=== PATIENT | female | born 1975 | race Hispanic/Latino ===

== ENCOUNTER 2017-05-05 12:20 | Outpatient (CLI) | payer MEDICARE, MEDICAID | END 2017-05-05 12:21 | disposition home or self-care (01) | LOC: BICMAMMO 12:20 | PROVIDERS: ATTEND Family Medicine | DX: R92.8 Other abnormal and inconclusive findings on diagnostic imaging of breast (principal) | CPT/HCPCS: 76642; 77066; G0279 ==

== ENCOUNTER 2019-05-10 00:25 | Observation (INO) | payer MEDICARE, MEDICAID ==
[2019-05-10] MEDS ORDERED: hydrALAZINE 20 MG/ML VIAL SLOW IVP SCH (03:15)
[2019-05-10 03:16] VITALS: BMI 29.5
[2019-05-10] MEDS ORDERED: cloNIDine 0.3mg/24 Hour PATCH TD PRN (04:46)
[2019-05-10] MEDS ORDERED: Acetaminophen 325 MG TAB PO PRN (04:46)
--- NOTE | 2019-05-10 05:06 | HP ---
PRIMARY CARE PHYSICIAN: Dr. Giordano. CHIEF COMPLAINT: Left-sided weakness. HISTORY OF PRESENT ILLNESS: Ms. Topete is a very pleasant 43-year-old female who has a history of previous stroke with right-sided weakness. She says that her stroke in the past was due to high blood pressure. She says that she has been doing essentially okay since her stroke before, but then yesterday at around 5:30 p.m., she says that she started getting extremely dizzy. She was in her kitchen at the time. She said she went outside to go get something and then was on her way back into the house when she noticed that her left leg was not working and she fell. Her helped her up and helped her back into the house. She says that she tried to take a shower and change but her leg was still weak and as a result, she asked her to bring her to the hospital. This was around 7:00 p.m. She says that by the time she got to the ER, she started to feel a little bit better and now her symptoms have completely resolved. She denied any chest pain or shortness of breath. No nausea and no vomiting during this time and she did not notice any weakness in her left arm. She says she has been compliant with her medications and says her blood pressure normally runs fairly good since she had been placed on the Catapres patch in addition to her other medicines. REVIEW OF SYSTEMS: All systems were reviewed and are negative, except for that mentioned in the history of present illness. 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 PAST SURGICAL HISTORY: She has had a cholecystectomy and a . ALLERGIES: TO CODEINE, WHICH CAUSES NAUSEA. PENICILLIN CAUSES ANAPHYLAXIS. SOCIAL HISTORY: She is , has 2 children. She smokes about a pack a day for the last 13 years. She denies any alcohol or drug use. FAMILY HISTORY: Significant for father, who had heart disease and coronary artery disease. MEDICATIONS: Include; 1. Aspirin 81 mg daily. 2. Catapres patch-TTS-3. 3. Hydralazine 100 mg t.i.d. 4. Losartan 100 mg daily. PHYSICAL EXAMINATION: GENERAL: She is alert and oriented. She appears to be in no acute distress. She is well developed and well nourished. VITAL SIGNS: Her blood pressure was as high as 227/119, but currently it is 158/80; heart rate 76; respiratory rate of 16; and she is afebrile. HEENT: Her pupils, the right pupil is a bit dilated and minimally reactive. The left is reactive. She does have some opacification of her lens on the right. Throat, there is no erythema and no exudate. NECK: No adenopathy. No bruits. LUNGS: Clear to auscultation. There is no wheezing, no rales, no rhonchi. CARDIOVASCULAR: She has a normal S1, S2. I did not appreciate an S3 or S4. No murmurs or clicks. No rubs. ABDOMEN: Obese. It is soft, nontender, and nondistended. Positive for bowel sounds. No rebound. No guarding. No organomegaly. EXTREMITIES: There is no edema. No calf tenderness. No joint effusions. NEUROLOGIC: She has some significant weakness in the right upper extremity and some flexion deformity of the right hand. She is unable to extend her fingers. The left upper and lower extremity, she has normal strength. She does have a right facial droop, and her reflexes are slightly hyperreactive. SKIN AND INTEGUMENT: There are no skin changes. No rash. LABORATORY DATA: The white blood cell count is 11, hemoglobin 11.3, hematocrit is 35.5, and platelet count is 255. Sodium 142, potassium 4.0, chloride is 111, CO2 is 21, BUN of 20, creatinine 1.8, and glucose is 127. She had a CT scan of the brain showing chronic ischemic changes but no acute finding. There was some enlargement of the frontal horn and the anterior body of the left lateral ventricle, possibly indicating a previous stroke. She had a CT angiogram of the [place], which was negative for aneurysm and both the internal and external carotid arteries bilaterally were patent. ASSESSMENT: This is a pleasant 43-year-old female who presents with a transient weakness in the left lower extremity as well as dizziness. I suspect this was likely a transient ischemic attack. Her symptoms have almost completely resolved. She also had hypertensive urgency with extremely elevated blood pressure, which appears to be resolving as well. She is a current smoker and the need to quit and how this is contributing to her current present illness was discussed with the patient. The plan will be to place the patient in observation, get an MRI of the brain, get an echocardiogram. Monitor her blood pressure to see if any medication adjustments are needed. She has already been counseled on the need to stop smoking and may need to either add Plavix to her low-dose aspirin or change her to Aggrenox depending on the results of her MRI. We will also check a lipid panel to see whether or not she needs the addition of a statin. Job ID: [id number]
[2019-05-10] MEDS: Losartan 25 MG TAB PO SCH (08:52)
[2019-05-10] MEDS: Famotidine 20 MG TAB PO SCH ×2 (08:52→21:15)
[2019-05-10] MEDS: hydrALAZINE 25 MG TAB PO SCH ×3 (08:52→21:15)
[2019-05-10] MEDS: Potassium Chloride 10 MEQ TAB PO SCH (08:53)
[2019-05-10] MEDS: Enoxaparin Sodium 40 MG/0.4 ML SYRINGE SC SCH (08:56)
[2019-05-10] MEDS ORDERED: Aspirin 325 mg Enteric Coated Tablet PO SCH (09:00)
[2019-05-10] MEDS: Multivit, Therapeutic 1 TAB PO SCH (09:04)
--- NOTE | 2019-05-10 12:18 | MRI ---
MRI BRAIN WITHOUT CONTRAST: Date: 05/10/2019 HISTORY: TIA, right-sided weakness. FINDINGS: Correlation is made with the previous day's CT brain and CTA brain of previous day. No restricted diffusion is seen. There are multiple foci of T2 prolongation in the periventricular wh ite matter consistent with chronic small vessel ischemic disease. There is hemosiderin in the left ex ternal capsule consistent with old hemorrhagic infarction. There is asymmetric ex vacuo dilatation o f the left lateral ventricle. No evidence of acute infarct, acute hemorrhage, midline shift, or abnor mal extra-axial fluid collections are seen. There is mucosal disease in the paranasal sinuses. IMPRESSION: No evidence of acute intracranial process. POS: [facility]
--- NOTE | 2019-05-10 18:50 | CON ---
DATE OF CONSULTATION: 05/10/2019 CONSULTING PHYSICIAN: Hospitalist service. IMPRESSION: 1. Questionable transient ischemic attack versus hypertensive urgency. 2. Prior intracerebral hemorrhage on the left secondary to hypertension. 3. Hypertension. 4. Tobacco use. 5. 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 PLAN: 1. Change from aspirin to Aggrenox. 2. Discontinue smoking. 3. Review echocardiogram tomorrow. HISTORY OF PRESENT ILLNESS: Ms. Topete is a 43-year-old female with a past history of a small intracerebral hemorrhage and blindness of the left eye secondary to vascular disease. She presented with complaints of increased left leg weakness and feeling of dizziness, it was coming and going and what she describes as wave. The symptoms lasted at least 4 hours, not longer. Initial CT was unremarkable. MRI of the brain showed evidence of chronic injury with old hemosiderin in the internal capsule on the left. There is some ventricular dilatation on the left as well. CT angiogram did not show any carotid stenosis, but there was some narrowing of the basilar artery by about 40%. She has not had any further symptoms since admission. Her initial blood pressure was 227/119, but has improved significantly to 119/60. PAST MEDICAL HISTORY: Hypertension. ALLERGIES: CODEINE AND PENICILLIN. MEDICATIONS: 1. Lipitor. 2. Ecotrin. 3. Clonidine. 4. Femodipine. 5. Hydralazine. 6. Losartan. 7. Potassium. SOCIAL HISTORY: Positive for tobacco. No alcohol abuse. REVIEW OF SYSTEMS: Ten-system review of systems is otherwise negative. PHYSICAL EXAMINATION: GENERAL: She is a somewhat overweight middle-aged woman, in no acute distress. VITAL SIGNS: Blood pressure 119/60, pulse 60, and respirations 16. She has been afebrile. HEENT: Pupils equal. Conjunctivae clear. Oropharynx clear. The left eye pupil does not react to light. NECK: Supple. EXTREMITIES: No cyanosis or edema. NEUROLOGIC: She is alert and cooperative. Her speech is fluent and clear. Cranial nerves are intact. Motor exam shows equal strength bilaterally. There is no sensory deficit. There are no abnormal movements. Gait was not tested. LABORATORY STUDIES: Cholesterol ratio of 3.0. IMAGING STUDIES: Reviewed. SUMMARY: This is a 43-year-old woman with previous vascular events, who presents with several hours of suspicious symptoms were a basilar TIA. Her MRI did not confirm any ischemic injury. Given the overall picture, I would advance her antiplatelet therapy to Aggrenox. If she remains stable, she can be discharged home tomorrow. Job ID: [id number]
[2019-05-10] MEDS ORDERED: Atorvastatin Calcium 40 MG TAB PO SCH (21:00)
[2019-05-10] MEDS: Aggrenox 200-25mg CAP PO SCH (21:14)
--- NOTE | 2019-05-10 21:45 | PDOC.HOSPP ---
- Subjective Encounter Date: 05/10/19 Encounter Time: 16:00 Subjective: The patient states she feels better. She is no longer dizzy. She walked around with physical therapy and felt no dizziness. ECHO was pending at the time of evaluation. She reports old stroke on the right side of body last year. She takes aspirin but not statin - Objective Vital Signs & Weight: Vital Signs (12 hours) Temp Pulse Pulse Pulse Pulse Pulse Resp 05/10/19 21:15 57 L 05/10/19 19:09 97.6 F 57 L 16 05/10/19 15:39 60 05/10/19 15:16 65 18 05/10/19 14:25 62 64 05/10/19 11:08 98.0 F 64 16 05/10/19 10:25 72 62 72 64 BP BP BP BP BP BP Pulse Ox 05/10/19 21:15 142/68 H 05/10/19 19:09 100 05/10/19 15:39 119/60 05/10/19 15:16 91/65 100 05/10/19 14:25 135/67 132/70 05/10/19 11:08 137/76 98 05/10/19 10:25 151/86 H 144/81 H 160/91 H 137/76 Weight Weight 156 lb 9.6 oz I&O: 05/09/19 05/10/19 05/11/19 06:59 06:59 06:59 Intake Total 60 1800 Balance 60 1800 Hospitalist ROS - Review of Systems Constitutional: denies: fever, chills Respiratory: denies: cough, dry - Medication Medications: Active Medications Generic Name Dose Route Start Last Admin Trade Name Freq PRN Reason Stop Dose Admin Acetaminophen 650 mg 05/10/19 04:46 05/10/19 21:14 Tylenol PO 650 mg Q4H PRN Administration Headache/Fever/Mild Pain (1-3) Atorvastatin Calcium 40 mg 05/10/19 21:00 05/10/19 21:14 Lipitor PO 40 mg HS MOISE Administration Dipyridamole/Aspirin 1 cap 05/10/19 21:00 05/10/19 21:14 Aggrenox PO 1 cap BID MOISE Administration Enoxaparin Sodium 40 mg 05/10/19 09:00 05/10/19 08:56 Lovenox SC 40 mg 0900 MOISE Administration Famotidine 20 mg 03/18/20 09:00 05/10/19 21:15 Pepcid PO 20 mg BID MOISE Administration Hydralazine HCl 100 mg 05/10/19 09:00 05/10/19 21:15 Apresoline PO 100 mg TID MOISE Administration Losartan Potassium 100 mg 05/10/19 09:00 05/10/19 08:52 Cozaar PO 100 mg DAILY MOISE Administration Multivitamins 1 tab 05/10/19 09:00 05/10/19 09:04 Theragran PO 1 tab DAILY OMISE Administration Potassium Chloride 10 meq 05/10/19 09:00 05/10/19 08:53 Klor-Con 10 PO 10 meq DAILY MOISE Administration Sodium Chloride 10 ml 05/10/19 04:46 05/10/19 21:16 Flush - Normal Saline IVF 10 ml PRN PRN Administration Saline Flush - Exam General Appearance: NAD, awake alert Eye: PERRL, anicteric sclera ENT: normocephalic atraumatic, no oropharyngeal lesions Neck: supple, no JVD Heart: RRR, no murmur, no gallops, no rubs Respiratory: CTAB, no wheezes, no rales, no ronchi Gastrointestinal: soft, non-tender, non-distended, normal bowel sounds Extremities: no cyanosis, no clubbing, no edema Skin: normal turgor, no lesions, no rashes Neurological: cranial nerve grossly intact, normal sensation to touch, no new deficit Neurological - other findings: right side 4/5 upper and lower which is baseline. Left side 5/5 upper+ lowe Musculoskeletal: normal tone, normal strength, no muscle wasting Hosp A/P - Plan MRI Brain: no acute process ECHO: EF 60-65%, mild LVh CTA: narrowings of the distal portions of each vertebral artery, particularly the left CT head: severe atherosclerotic calcifications of the intracavernous carotic arteries as well as basilar and right greater than left vertebral arteries. This is a 43 year old female who presented with dizziness and left leg weakness , admitted for TIA workup Hypertensive urgency - blood pressure improved with increasing hydralazine to 100 mg tid - continue losartan 100 mg daily - ECHO shows no significant abnormalities - will monitor overnight and likely d/c in am Transient Left leg weakness - possibly TIA - aspirin switched to aggrenox - continue aspirin - continue statin - LDL only 47 Leukocytosois - WBC 11, likely reactive, check UA and chest X ray
[2019-05-11 05:04] LABS: #Basophils 0.1 thou/uL (0.0-0.2); #Eosinphils 0.4 thou/uL (0.0-0.7); #Lymphocytes 3.1 thou/uL (1.20-3.40); #Monocytes 0.7 thou/uL (0.11-0.59); #Neutrophils 5.7 thou/uL (1.40-6.50); %Basophils 0.6 % (0.0-1.0); %Eosinophils 4.2 % (0.0-10.0); %Lymphocytes 31.2 % (21.0-51.0); %Monocytes 6.9 % (0.0-10.0); %Neutrophils 57.2 % (42.0-75.0); Hemoglobin 11.3 g/dL (12.0-16.0); Mean Corpuscular HGB CONC 33.2 g/dL (32.0-36.0); Mean Corpuscular Hemoglobin 32.9 pg (27.0-31.0); Mean Corpuscular Volume 99.1 fL (78.0-98.0); Mean Platelet Volume 9.1 fL (7.4-10.4); Platelet Count 242 thou/uL (130-400); RBC Distribution Width 12.5 % (11.5-14.5); Red Blood Cell (RBC) Count 3.42 mill/uL (4.20-5.40)
[2019-05-11 05:27] LABS: Anion Gap 11 mmol/L (10-20); BUN (Urea Nitrogen) 24 mg/dL (7.0-18.7); Calc. Creatinine Clearance 55 mL/min (70-130); Calcium 8.4 mg/dL (7.8-10.44); Carbon Dioxide 18 mmol/L (22-29); Chloride 114 mmol/L (98-107); Estimated GFR-MDRD 38; Glucose 88 mg/dL (70-105); Sodium 139 mmol/L (136-145)
[2019-05-11 07:16] VITALS: BP 133/81; TEMP 98.1
--- NOTE | 2019-05-11 07:44 | RAD ---
EXAM: Single view of the chest HISTORY: Leukocytosis COMPARISON: 04/17/2017 FINDINGS: Single view of the chest shows a normal sized cardiomediastinal silhouette. There is no adonis dence of consolidation, mass, or pleural effusion. Degenerative changes are seen in the spine. IMPRESSION: No evidence of acute cardiopulmonary disease
[2019-05-11] MEDS: Losartan 25 MG TAB PO SCH (08:59)
[2019-05-11] MEDS: Enoxaparin Sodium 40 MG/0.4 ML SYRINGE SC SCH (08:59)
[2019-05-11] MEDS: hydrALAZINE 25 MG TAB PO SCH (09:00)
[2019-05-11] MEDS: Potassium Chloride 10 MEQ TAB PO SCH (09:00)
[2019-05-11] MEDS: Famotidine 20 MG TAB PO SCH (09:00)
[2019-05-11] MEDS: Multivit, Therapeutic 1 TAB PO SCH (09:00)
[2019-05-11] MEDS: Aggrenox 200-25mg CAP PO SCH (09:00)
[2019-05-11 09:46] LABS: Bilirubin Negative (Negative); Blood, Urine Negative (Negative); Clarity Turbid (Clear); Glucose, Urine (Dipstick) Normal (Negative); Leukocyte 250 Leu/uL (Negative); Nitrite 2+ (Negative); Protein, Urine (Dipstick) Negative (Neg-Trace); RBC/HPF 0-3 HPF (0-3); Urobilinogen Normal mg/dL (Less than 2); WBC/HPF 21-50 HPF (0-3)
[2019-05-11 09:51] LABS: Bacteria/HPF 4+ HPF (None Seen)
--- NOTE | 2019-05-11 13:06 | DIS ---
DATE OF ADMISSION: 05/10/2019 DATE OF DISCHARGE: 05/11/2019 DISCHARGE DIAGNOSES: Hypertensive urgency, transient ischemic attack, anemia, chronic kidney disease. CONSULTATIONS: Neurology with Dr. Neo Ash. PROCEDURES: None. BRIEF HISTORY OF PRESENT ILLNESS: This is a 43-year-old female with a past medical history of hypertension, cataracts, retinal clot, who presented to the emergency room with left-sided weakness. The patient stated that she was walking around in the kitchen and she started feeling extremely dizzy, and her left arm and left leg went weak. By the time she came to the hospital, her symptoms had completely resolved. CT scan of her brain showed severe atherosclerotic calcifications of the intracavernous carotid arteries as well as basilar and right greater than left vertebral arteries. CT scan of her head showed no acute abnormality. CTA of her head showed a 50% stenosis in the right V4 segment and severe narrowing in the distal left V4 segment. Blood pressure upon evaluation to the emergency room was greater than 200 systolic. The patient was admitted for stroke workup. HOSPITAL COURSE: Hypertensive urgency/TIA: The patient's outpatient blood pressure medication was increased from hydralazine 50 mg t.i.d. to 100 mg t.i.d. She was continued on her losartan 100 mg daily. Her echo showed no significant abnormalities. She was seen by Neurology for the transient left-sided weakness and was advised to switch from aspirin to Aggrenox. She was also started on a cholesterol pill, atorvastatin 40 mg at bedtime. Her LDL was 47. The patient's blood pressure improved to the 130s with this. She denied any further symptoms of dizziness or vertigo. Her left-sided weakness had resolved. She did have an MRI of her brain, which showed no findings of a stroke. She will be discharged and was advised to follow up with her PCP in a week for re-evaluation of her blood pressure. Vertebral artery stenosis: The patient was noted to have narrowings of the distal portions of each vertebral artery with 50% stenosis of the distal right and more severe focal narrowing in the distal left. Currently, she is asymptomatic. Therefore, this can be further monitored as an outpatient. Anemia: The patient has hemoglobin of 11.3. This seems to be intermittently chronic for her. This can be monitored as an outpatient with her PCP. CKD: The patient's creatinine is 1.49, which is her baseline. Positive UA: The patient did have turbid urine. However, she denied frequency, urgency, or dysuria. Therefore, this is not treated. DISCHARGE PHYSICAL EXAMINATION: VITAL SIGNS: Temperature 98.1, heart rate 60, respiratory rate 14, O2 saturation 98% on room air, blood pressure 133/81. EYES: bilateral cataracts. Strabismus in her eyes. Right pupil not reactive to light due to clot in the retina. Blind in right eye THROAT: no pharyngeal erythema GENERAL: The patient is alert, awake, and oriented x3. CARDIOVASCULAR SYSTEM: Regular rate and rhythm with no murmurs, rubs, or gallops. LUNGS: Clear to auscultation bilaterally. ABDOMEN: Positive bowel sounds. Soft, nontender, nondistended. EXTREMITIES: No edema. NEUROLOGIC: The patient's cranial nerves 2 through 12 are intact, right pupil not reactive. The patient reports she is blind in her right eye. She has 5/5 strength in her upper and lower extremities. Intact sensation in all 4 extremities. She has normal [id number] testing. PERTINENT LABORATORY DATA: CBC on 05/10: Hemoglobin 11.3, hematocrit 33.9, MCV 99. BMP on 05/10: Creatinine 1.49. Lipid panel: Cholesterol 136, LDL 77, HDL 46, triglycerides 65. UA on 05/10: Turbid urine, 2+ nitrite, 250 leukocyte esterase, 21 to 50 white blood cells. PERTINENT IMAGING STUDIES: CT brain on 05/08: No acute intracranial abnormality. Severe atherosclerotic calcifications of the intracavernous carotid arteries as well as the basilar and right greater than left vertebral arteries. CTA: No evidence of vascular occlusion. There is greater than 50% stenosis of the distal right vertebral artery. There is more severe focal narrowing in the distal left vertebral artery. MRI brain on 05/09: No acute intracranial process. Chest x-ray on 05/09: Shows no acute intracranial process. Echo on 05/09: Shows EF 60% to 65%. Mild concentric LVH. Left atrium is mildly dilated. No valvular abnormalities. DISCHARGE CONDITION: Stable. ACTIVITY: As tolerated. DIET: Heart healthy diet. DISCHARGE INSTRUCTIONS: The patient is to start taking Aggrenox and atorvastatin twice daily. Her hydralazine was increased to 100 mg p.o. t.i.d. She should follow up with her PCP in a week and consider further evaluation of vertebral artery stenosis. Job ID: [id number] [facility]
== END 2019-05-11 14:00 | disposition home or self-care (01) ==
LOC: ERS 00:25 → 2SE 01:11
PROVIDERS: ADMIT Internal Medicine; ATTEND Internal Medicine
DX: G45.9 Transient cerebral ischemic attack, unspecified (principal); I16.0 Hypertensive urgency; I65.03 Occlusion and stenosis of bilateral vertebral arteries; D64.9 Anemia, unspecified; R82.998 Other abnormal findings in urine; D72.829 Elevated white blood cell count, unspecified; I12.9 Hypertensive chronic kidney disease with stage 1 through stage 4 chronic kidney disease, or unspecified chronic kidney disease; N18.9 Chronic kidney disease, unspecified; H47.012 Ischemic optic neuropathy, left eye; F17.210 Nicotine dependence, cigarettes, uncomplicated; Z79.899 Other long term (current) drug therapy; Z86.73 Personal history of transient ischemic attack (TIA), and cerebral infarction without residual deficits; Z88.0 Allergy status to penicillin; Z88.5 Allergy status to narcotic agent; Z90.49 Acquired absence of other specified parts of digestive tract
CPT/HCPCS: 36415; 70551; 71045; 80048; 80061; 81001; 85025; 93005; 93010; 93306; 96372; 96374; 99285; G0378; J0360; J1650

== ENCOUNTER 2020-06-21 12:46 | Outpatient (CLI) | payer MEDICARE, MEDICAID | END 2020-06-21 12:47 | disposition home or self-care (01) | LOC: BICMAMMO 12:46 | PROVIDERS: ATTEND Family Medicine | DX: Z12.31 Encounter for screening mammogram for malignant neoplasm of breast (principal) | CPT/HCPCS: 77063; 77067 ==

== ENCOUNTER 2020-06-27 10:54 | Outpatient (CLI) | payer MEDICARE, MEDICAID ==
[2020-06-27 12:42] LABS: BHCG - Serum Negative (NEGATIVE); Pregs Control Background? CLEAR/WHITE (CLR/WHITE); Pregs Control Bar Appear? YES (CONTROL BAR)
== END 2020-06-27 10:55 | disposition home or self-care (01) ==
LOC: LABBT 10:54
PROVIDERS: ATTEND Thoracic Surgery (Cardiothoracic Vascular Surgery)
DX: Z01.818 Encounter for other preprocedural examination (principal); I25.10 Atherosclerotic heart disease of native coronary artery without angina pectoris; Z20.822 Contact with and (suspected) exposure to COVID-19
CPT/HCPCS: 71046; 80048; 84703; 85027; 86850; 86900; 86901; 86920; U0003; U0005; 87635

== ENCOUNTER 2020-07-01 06:16 | Inpatient (IN) | payer MEDICARE, MEDICAID ==
[2020-06-27 12:36] LABS: Hemoglobin 11.5 g/dL (12.0-15.5); Mean Corpuscular HGB CONC 32.7 g/dL (32.0-36.0); Mean Corpuscular Hemoglobin 32.8 pg (27.0-33.0); Mean Corpuscular Volume 100.3 fl (81.6-98.3); Mean Platelet Volume 11.7 fl (7.4-10.4); Platelet Count 261 10x3/uL (150-450); Red Blood Cell (RBC) Count 3.51 10x6/uL (3.90-5.03); White Blood Cell (WBC) Count 10.3 10x3/uL (3.5-10.5)
[2020-06-27 12:50] LABS: Anion Gap 17 mmol/L (10-20); BUN (Urea Nitrogen) 22 mg/dL (7.0-18.7); Calc. Creatinine Clearance 0 mL/min (70-130); Calcium 9.2 mg/dL (7.8-10.44); Carbon Dioxide 19 mmol/L (22-29); Chloride 109 mmol/L (98-107); Glucose 108 mg/dL (70-105); Potassium 4.2 mmol/L (3.5-5.1); Sodium 141 mmol/L (136-145)
[2020-06-27 20:46] LABS: SARS-CoV-2 PCR by NAA Not Detected (NotDetected)
[2020-07-01] MEDS ORDERED: Vancomycin 1 GM/200 ML BAG ONE (06:28)
[2020-07-01] MEDS ORDERED: Clindamycin/D5W 900 mg/50 ml Premix Bag ONE (06:28)
[2020-07-01] MEDS ORDERED: Midazolam HCl 2 mg/2 ml Vial ONE (06:32)
[2020-07-01] MEDS ORDERED: Fentanyl 100 MCG/2 ML VIAL ONE (06:32)
[2020-07-01] MEDS ORDERED: Midazolam HCl 5 mg/5 ml Vial ONE (06:32)
[2020-07-01] MEDS ORDERED: Dexmedetomidine 200 MCG/2 ML VIAL ONE (06:33)
[2020-07-01] MEDS ORDERED: Vecuronium 10 MG VIAL ONE ×3 (06:33→07:27)
[2020-07-01] MEDS ORDERED: Albumin 5% 500 ML ONE (06:34)
[2020-07-01] MEDS ORDERED: Dexamethasone 4 mg/ml Vial ONE (06:35)
[2020-07-01] MEDS ORDERED: Bupivacaine PF 0.5% 30 ML VIAL ONE (06:35)
[2020-07-01] MEDS ORDERED: EPINEPHrine 1 MG/ML AMP ONE (06:35)
[2020-07-01] MEDS ORDERED: Aminocaproic Acid 5 GM/20 ML VIAL ONE (07:27)
[2020-07-01] MEDS ORDERED: Ondansetron PF 4 MG/2 ML Vial ONE (07:27)
[2020-07-01] MEDS ORDERED: Calcium Chloride 1 GM/10 ML Abboject SYRINGE ONE (07:27)
[2020-07-01] MEDS ORDERED: Lidocaine 2% PF 100 mg/5 ml Syringe ONE (07:27)
[2020-07-01] MEDS ORDERED: Papaverine 60 MG/2 ML VIAL ONE (07:27)
[2020-07-01] MEDS ORDERED: Potassium Chloride 60 MEQ/30 ML VIAL ONE (07:27)
[2020-07-01] MEDS ORDERED: ePHEDrine Sulfate 50 MG/10 ML VIAL ONE (07:27)
[2020-07-01] MEDS ORDERED: Glycopyrrolate 0.2 MG/ML 5 ML SYRINGE ONE (07:27)
[2020-07-01] MEDS ORDERED: Heparin 5,000 UNITS/ML VIAL ONE (07:27)
[2020-07-01] MEDS ORDERED: Magnesium Sulfate 1 GM/2 ML VIAL ONE (07:27)
[2020-07-01] MEDS ORDERED: Sodium Bicarb 50 MEQ/50 ML Abboject 8.4% SYRINGE ONE (07:27)
[2020-07-01] MEDS ORDERED: Cardioplegic Soln 1,000 ML BAG ONE (07:27)
[2020-07-01] MEDS ORDERED: Ketorolac Tromethamine 30 MG/ML VIAL ONE (07:27)
[2020-07-01] MEDS ORDERED: Heparin 30,000 units/30 ml VIAL ONE (07:27)
[2020-07-01] MEDS ORDERED: Lidocaine 1% PF 5 ML VIAL ONE ×2 (07:27)
[2020-07-01] MEDS ORDERED: Mannitol 12.5 GM/50 ML ONE (07:27)
[2020-07-01] MEDS ORDERED: Protamine Sulfate 250 MG/25 ML VIAL ONE (07:27)
[2020-07-01] MEDS ORDERED: Thrombin 5000 UNITS/5 ML VIAL ONE (07:27)
[2020-07-01] MEDS ORDERED: Dexamethasone 20 MG/5 ML VIAL ONE (07:27)
[2020-07-01] MEDS ORDERED: PHENYLEPHRINE-NS 100 MCG/ML 10 ML SYRINGE ONE ×2 (07:27→08:16)
[2020-07-01] MEDS ORDERED: Sodium Chloride 0.9% 10 ML ONE (07:39)
[2020-07-01] MEDS ORDERED: Ondansetron PF 4 MG/2 ML Vial IVP PRN (11:58)
[2020-07-01] MEDS ORDERED: Phenylephrine 40 MG in Sodium Chloride 0.9% 250 ML 250 ML IVPB PRN (11:58)
[2020-07-01] MEDS ORDERED: traMADol HCl 50 MG TAB PO PRN (11:58)
[2020-07-01] MEDS ORDERED: Nitroglycerin 50 MG/250 ML BOT 250 ML IVPB PRN (11:58)
[2020-07-01] MEDS ORDERED: Mag-Al 1200 mg/1200 mg/30 ML UDCUP PO PRN (11:58)
[2020-07-01] MEDS ORDERED: hydrALAZINE 20 MG/ML VIAL SLOW IVP PRN (11:58)
[2020-07-01] MEDS ORDERED: Fentanyl 100 MCG/2 ML VIAL SLOW IVP PRN ×2 (11:58)
[2020-07-01] MEDS ORDERED: Bisacodyl 5 MG TAB PO PRN (11:58)
[2020-07-01] MEDS ORDERED: HYDROcodone/Acetaminophen 5/325 mg Tablet PO PRN (11:58)
[2020-07-01] MEDS ORDERED: Hetastarch 6% 500 ML 500 ML IVPB PRN (11:58)
[2020-07-01] MEDS ORDERED: Acetaminophen 325 MG TAB PO PRN (11:58)
[2020-07-01] MEDS ORDERED: Promethazine HCl 25 MG/ML VIAL IM PRN (11:58)
[2020-07-01] MEDS ORDERED: Bisacodyl 10 MG SUPP PR PRN (11:58)
[2020-07-01] MEDS ORDERED: Guaifenesin DM 100-10/5 ML UDCUP PO PRN (11:58)
[2020-07-01 12:27] LABS: Mean Corpuscular HGB CONC 31.9 g/dL (32.0-36.0); Mean Corpuscular Hemoglobin 32.6 pg (27.0-31.0); Mean Platelet Volume 8.5 fL (7.4-10.4); Platelet Count 169 thou/uL (130-400); RBC Distribution Width 11.5 % (11.5-14.5); Red Blood Cell (RBC) Count 2.76 mill/uL (4.20-5.40); White Blood Cell (WBC) Count 25.7 thou/uL (4.8-10.8)
[2020-07-01] MEDS ORDERED: Dextrose 5% in Water 1,000 ML IV PRN (12:30)
[2020-07-01] MEDS ORDERED: Lantus 1000 UNITS/10 ML VIAL SC PRN (12:30)
[2020-07-01] MEDS ORDERED: HUMULIN R 100 UNITS in Sodium Chloride 0.9% 100 ML IVPB SCH (12:30)
[2020-07-01] MEDS ORDERED: Dextrose 50% Abboject 50 ML SYRINGE SLOW IVP PRN (12:30)
[2020-07-01 12:37] LABS: INR-International Normal Ratio 1.2; PTT 31.7 sec (22.9-36.1); Prothrombin Time 15.2 sec (12.0-14.7)
[2020-07-01] MEDS: Clindamycin/D5W 900 MG in Premix Bag 1 BAG IVPB SCH ×3 (12:44→23:09)
[2020-07-01 12:45] LABS: Band 20 % (5-11); Eosinophils 1 % (0-10); Lymphocytes 11 % (21-51); MDiff Complete? YES; Monocytes 3 % (0-10); Neutrophil 64 % (42-75); Platelet Morphology Comment Appears Adequate; Polychromasia SLIGHT = 2-3 cells (100X) (0-2/hpf); Reactive Lymphocytes 1 % (0-10)
[2020-07-01] MEDS: D5 1/2 NS w/20 mEq KCL 1,000 ML IV SCH (12:45)
[2020-07-01] MEDS: Insulin Regular 300 UNITS/3 ML VIAL SC PRN (12:45)
[2020-07-01] MEDS: Ketorolac Tromethamine 30 MG/ML VIAL IVP SCH ×3 (12:46→23:05)
[2020-07-01 12:49] LABS: Anion Gap 11 mmol/L (10-20); BUN (Urea Nitrogen) 16 mg/dL (7.0-18.7); Calc. Creatinine Clearance 64 mL/min (70-130); Calcium 7.4 mg/dL (7.8-10.44); Carbon Dioxide 20 mmol/L (22-29); Chloride 113 mmol/L (98-107); Glucose 189 mg/dL (70-105); Potassium 3.9 mmol/L (3.5-5.1); Sodium 140 mmol/L (136-145)
[2020-07-01] MEDS: HYDROcodone/Acetaminophen 5/325 mg Tablet PO PRN ×3 (14:21→23:08)
[2020-07-01] MEDS: Potassium Chloride 20 MEQ/100 ML PREMIX BAG IVPB PRN (16:53)
[2020-07-01] MEDS: Vancomycin 1 GM in Premix Bag 1 BAG IVPB SCH (17:15)
[2020-07-01 18:07] LABS: Hemoglobin 9.9 g/dL (12.0-16.0)
[2020-07-01 18:20] LABS: Potassium 4.1 mmol/L (3.5-5.1)
[2020-07-01] MEDS: Atorvastatin Calcium 40 MG TAB PO SCH (20:45)
[2020-07-01] MEDS ORDERED: Famotidine/PF 20 mg/2ml Vial SLOW IVP SCH (21:00)
[2020-07-02 04:30] LABS: Anion Gap 12 mmol/L (10-20); BUN (Urea Nitrogen) 18 mg/dL (7.0-18.7); Calc. Creatinine Clearance 56 mL/min (70-130); Calcium 7.8 mg/dL (7.8-10.44); Carbon Dioxide 19 mmol/L (22-29); Chloride 108 mmol/L (98-107); Glucose 101 mg/dL (70-105); Potassium 3.8 mmol/L (3.5-5.1); Sodium 135 mmol/L (136-145)
[2020-07-02 04:34] LABS: Band 27 % (5-11); Hemoglobin 8.3 g/dL (12.0-16.0); Lymphocytes 4 % (21-51); MDiff Complete? YES; Mean Corpuscular HGB CONC 32.9 g/dL (32.0-36.0); Mean Corpuscular Hemoglobin 33.7 pg (27.0-31.0); Mean Platelet Volume 9.5 fL (7.4-10.4); Monocytes 8 % (0-10); Neutrophil 61 % (42-75); Platelet Count 150 thou/uL (130-400); RBC Distribution Width 11.6 % (11.5-14.5); Red Blood Cell (RBC) Count 2.46 mill/uL (4.20-5.40); White Blood Cell (WBC) Count 21.5 thou/uL (4.8-10.8)
[2020-07-02] MEDS: HYDROcodone/Acetaminophen 5/325 mg Tablet PO PRN ×3 (05:37→18:32)
[2020-07-02] MEDS: Ketorolac Tromethamine 30 MG/ML VIAL IVP SCH ×4 (05:40→23:53)
[2020-07-02] MEDS: Clindamycin/D5W 900 MG in Premix Bag 1 BAG IVPB SCH (05:41)
[2020-07-02] MEDS: Vancomycin 1 GM in Premix Bag 1 BAG IVPB SCH (05:42)
[2020-07-02] MEDS: Potassium Chloride 20 MEQ/100 ML PREMIX BAG IVPB PRN (05:48)
[2020-07-02 07:10] VITALS: BMI 32.5
[2020-07-02] MEDS: Aspirin 325 MG TAB PO SCH (08:59)
[2020-07-02] MEDS: Insulin Regular 300 UNITS/3 ML VIAL SC PRN (09:41)
[2020-07-02] MEDS: D5 1/2 NS w/20 mEq KCL 1,000 ML IV SCH (11:37)
[2020-07-02] MEDS: Atorvastatin Calcium 40 MG TAB PO SCH (20:47)
[2020-07-02] MEDS ORDERED: Famotidine/PF 20 mg/2ml Vial SLOW IVP SCH (21:00)
[2020-07-03] MEDS ORDERED: diphenhydrAMINE 25 MG CAP PO PRN (01:54)
[2020-07-03] MEDS ORDERED: Zolpidem Tartrate 5 MG TAB PO PRN (01:54)
[2020-07-03] MEDS ORDERED: Fentanyl 100 MCG/2 ML VIAL SLOW IVP PRN (01:54)
[2020-07-03] MEDS ORDERED: Nitroglycerin 0.4 MG TAB (25 Tab Bottle) SL PRN (01:54)
[2020-07-03] MEDS ORDERED: Milk Of Magnesia 30 ML UDCUP PO PRN (01:54)
[2020-07-03] MEDS ORDERED: Ondansetron PF 4 MG/2 ML Vial IVP PRN (01:54)
[2020-07-03] MEDS ORDERED: Mineral Oil ENEMA PR PRN (01:54)
[2020-07-03] MEDS ORDERED: Guaifenesin DM 100-10/5 ML UDCUP PO PRN (01:54)
[2020-07-03] MEDS ORDERED: Bisacodyl 10 MG SUPP PR PRN (01:54)
[2020-07-03] MEDS ORDERED: Mag-Al 1200 mg/1200 mg/30 ML UDCUP PO PRN (01:54)
[2020-07-03] MEDS ORDERED: Furosemide 40 MG TAB PO SCH (02:00)
[2020-07-03] MEDS ORDERED: Potassium Chloride 10 MEQ TAB PO SCH (02:15)
[2020-07-03] MEDS ORDERED: Famotidine 20 MG TAB PO SCH (02:15)
[2020-07-03] MEDS: Ketorolac Tromethamine 30 MG/ML VIAL IVP SCH ×4 (03:52→20:29)
[2020-07-03 04:45] LABS: #Eosinphils 0.1 thou/uL (0.0-0.7); #Lymphocytes 2.6 thou/uL (1.20-3.40); #Neutrophils 14.7 thou/uL (1.40-6.50); %Basophils 0.2 % (0.0-1.0); %Eosinophils 0.5 % (0.0-10.0); %Lymphocytes 14.2 % (21.0-51.0); %Monocytes 5.4 % (0.0-10.0); %Neutrophils 79.8 % (42.0-75.0); Hemoglobin 8.2 g/dL (12.0-16.0); Mean Corpuscular HGB CONC 31.9 g/dL (32.0-36.0); Mean Platelet Volume 9.1 fL (7.4-10.4); Platelet Count 144 thou/uL (130-400); RBC Distribution Width 11.9 % (11.5-14.5); Red Blood Cell (RBC) Count 2.47 mill/uL (4.20-5.40); White Blood Cell (WBC) Count 18.4 thou/uL (4.8-10.8)
[2020-07-03 05:11] LABS: Anion Gap 11 mmol/L (10-20); BUN (Urea Nitrogen) 20 mg/dL (7.0-18.7); Calc. Creatinine Clearance 53 mL/min (70-130); Calcium 8.1 mg/dL (7.8-10.44); Carbon Dioxide 21 mmol/L (22-29); Chloride 110 mmol/L (98-107); Glucose 95 mg/dL (70-105); Sodium 137 mmol/L (136-145)
[2020-07-03] MEDS: traMADol HCl 50 MG TAB PO PRN ×2 (05:20→16:20)
[2020-07-03] MEDS: Furosemide 40 MG TAB PO SCH (08:47)
[2020-07-03] MEDS: Aspirin 325 MG TAB PO SCH (08:47)
[2020-07-03] MEDS: Famotidine 20 MG TAB PO SCH ×2 (08:47→20:30)
[2020-07-03] MEDS: Potassium Chloride 10 MEQ TAB PO SCH (08:47)
[2020-07-03 14:57] LABS: Actual Bicarbonate (HCO3a) 22.8 mEq/L (22-28); Analyzer IN Cardio OR; Base Excess (BEa) -3.9 mEq/L (-2.0 to +3.0); CO2 Tension 48.9 mmHg (35.0-45.0); Calcium, Ionized (arterial) 1.09 mmol/L (1.12-1.30); Carboxyhemoglobin (COHb) 0.9 gm% (0.0-3.0); Hemoglobin (Hb) 9.6 g/dL (12.0-16.0); Potassium - ABG Lab 4.12 mmol/L (3.70-5.30); pH, Arterial 7.29 (7.35-7.45)
[2020-07-03 14:57] LABS: Actual Bicarbonate (HCO3a) 21.5 mEq/L (22-28); Analyzer IN Cardio OR; Base Excess (BEa) -3.1 mEq/L (-2.0 to +3.0); CO2 Tension 36.4 mmHg (35.0-45.0); Calcium, Ionized (arterial) 0.99 mmol/L (1.12-1.30); Carboxyhemoglobin (COHb) 2.1 gm% (0.0-3.0); Hemoglobin (Hb) 7.2 g/dL (12.0-16.0); O2 Tension (PaO2), arterial 372.9 mmHg (80.0-100.0); Potassium - ABG Lab 4.94 mmol/L (3.70-5.30); pH, Arterial 7.39 (7.35-7.45)
[2020-07-03 14:58] LABS: Actual Bicarbonate (HCO3a) 20.4 mEq/L (22-28); Analyzer IN Cardio OR; Base Excess (BEa) -3.2 mEq/L (-2.0 to +3.0); CO2 Tension 30.8 mmHg (35.0-45.0); Calcium, Ionized (arterial) 0.99 mmol/L (1.12-1.30); Carboxyhemoglobin (COHb) 2.4 gm% (0.0-3.0); Hemoglobin (Hb) 7.6 g/dL (12.0-16.0); O2 Tension (PaO2), arterial 441.9 mmHg (80.0-100.0); Potassium - ABG Lab 4.79 mmol/L (3.70-5.30); pH, Arterial 7.44 (7.35-7.45)
[2020-07-03 14:58] LABS: Actual Bicarbonate (HCO3v) 23 mEq/L (22-28); Analyzer IN Cardio OR; Base Excess -2.5 mEq/L (-2.0 to +3.0); Chloride (VBG) 110 mmol/L (98-106); Hemoglobin (Hb) 7.8 g/dL (11.7-15.5); Potassium (VBG) 4.82 mmol/L (3.70-5.30); Sodium 133.7 mmol/L (133-146); pH (venous) 7.37 (7.32-7.43)
[2020-07-03 14:59] LABS: Analyzer IN Cardio OR; Base Excess (BEa) -7.3 mEq/L (-2.0 to +3.0); CO2 Tension 30.2 mmHg (35.0-45.0); Calcium, Ionized (arterial) 1.13 mmol/L (1.12-1.30); Carboxyhemoglobin (COHb) 2.2 gm% (0.0-3.0); Hemoglobin (Hb) 10.6 g/dL (12.0-16.0); O2 Tension (PaO2), arterial 373.3 mmHg (80.0-100.0); Potassium - ABG Lab 4.09 mmol/L (3.70-5.30); pH, Arterial 7.37 (7.35-7.45)
[2020-07-03 14:59] LABS: Actual Bicarbonate (HCO3a) 18.9 mEq/L (22-28); Analyzer IN Cardio OR; Base Excess (BEa) -3.7 mEq/L (-2.0 to +3.0); Calcium, Ionized (arterial) 1.11 mmol/L (1.12-1.30); Carboxyhemoglobin (COHb) 3.9 gm% (0.0-3.0); Hemoglobin (Hb) 11.1 g/dL (12.0-16.0); O2 Tension (PaO2), arterial 468.5 mmHg (80.0-100.0); Potassium - ABG Lab 4.02 mmol/L (3.70-5.30); pH, Arterial 7.46 (7.35-7.45)
[2020-07-03 15:00] LABS: Puncture Site Arterial Line
[2020-07-03 15:00] LABS: Puncture Site Arterial Line
[2020-07-03 15:01] LABS: Puncture Site Arterial Line
[2020-07-03 15:05] LABS: Puncture Site Arterial Line
[2020-07-03 15:05] LABS: Puncture Site Arterial Line
[2020-07-03] MEDS: Atorvastatin Calcium 40 MG TAB PO SCH (20:30)
[2020-07-04] MEDS: Ketorolac Tromethamine 30 MG/ML VIAL IVP SCH ×4 (04:00→20:01)
[2020-07-04] MEDS: Potassium Chloride 10 MEQ TAB PO SCH (08:07)
[2020-07-04] MEDS: Famotidine 20 MG TAB PO SCH ×2 (08:07→20:02)
[2020-07-04] MEDS: Furosemide 40 MG TAB PO SCH (08:07)
[2020-07-04] MEDS: Aspirin 325 MG TAB PO SCH (08:07)
[2020-07-04] MEDS: Amlodipine 5 MG TAB PO SCH (08:07)
[2020-07-04] MEDS: Bisacodyl 5 MG TAB PO PRN (17:21)
[2020-07-04] MEDS: Atorvastatin Calcium 40 MG TAB PO SCH (20:02)
[2020-07-05] MEDS: Ketorolac Tromethamine 30 MG/ML VIAL IVP SCH ×3 (02:13→15:25)
[2020-07-05] MEDS: Aspirin 325 MG TAB PO SCH (08:34)
[2020-07-05] MEDS: Amlodipine 5 MG TAB PO SCH (08:34)
[2020-07-05] MEDS: Furosemide 40 MG TAB PO SCH (08:34)
[2020-07-05] MEDS: Famotidine 20 MG TAB PO SCH (08:34)
[2020-07-05] MEDS: Potassium Chloride 10 MEQ TAB PO SCH (08:34)
[2020-07-05] MEDS: Bisacodyl 5 MG TAB PO PRN (08:35)
[2020-07-05] MEDS: traMADol HCl 50 MG TAB PO PRN (11:33)
[2020-07-05 15:25] VITALS: BP 161/93; TEMP 97.6
== END 2020-07-05 16:13 | disposition home or self-care (01) | DRG 221 ==
LOC: SDC 06:16 → CCU 11:58 → 2NO 07-02 12:11
PROVIDERS: ADMIT Thoracic Surgery (Cardiothoracic Vascular Surgery); ATTEND Thoracic Surgery (Cardiothoracic Vascular Surgery)
PROC: 02100Z9 Bypass Coronary Artery, One Artery from Left Internal Mammary, Open Approach (ICD-10-PCS; principal; 2020-07-01)
PROC: 02QF0ZZ Repair Aortic Valve, Open Approach (ICD-10-PCS; 2020-07-01)
PROC: 021209W Bypass Coronary Artery, Three Arteries from Aorta with Autologous Venous Tissue, Open Approach (ICD-10-PCS; 2020-07-01)
PROC: 06BQ3ZZ Excision of Left Saphenous Vein, Percutaneous Approach (ICD-10-PCS; 2020-07-01)
PROC: 5A1221Z Performance of Cardiac Output, Continuous (ICD-10-PCS; 2020-07-01)
PROC: 02B Heart and Great Vessels, Excision (ICD-10-PCS; 2020-07-01)
DX: I25.110 Atherosclerotic heart disease of native coronary artery with unstable angina pectoris (principal); E78.2 Mixed hyperlipidemia; Z20.822 Contact with and (suspected) exposure to COVID-19; N18.2 Chronic kidney disease, stage 2 (mild); H54.40 Blindness, one eye, unspecified eye; F17.210 Nicotine dependence, cigarettes, uncomplicated; F41.9 Anxiety disorder, unspecified; D15.1 Benign neoplasm of heart; I12.9 Hypertensive chronic kidney disease with stage 1 through stage 4 chronic kidney disease, or unspecified chronic kidney disease; Z90.49 Acquired absence of other specified parts of digestive tract; Z86.73 Personal history of transient ischemic attack (TIA), and cerebral infarction without residual deficits; Z88.5 Allergy status to narcotic agent; Z88.0 Allergy status to penicillin
CPT/HCPCS: 36415; 36416; 36430; 71045; 80048; 82805; 85025; 85027; 85610; 85730; 86850; 86900; 86901; 87635; 88305; 93005; 93010; 93798; 94640; J0171; J1100; J1642; J1644; J1815; J1885; J2001; J2150; J2250; J2405; J2440; J2720; J3010; J3370; J3475; J3480; J3490; J7620; P9045; S0017; S0020; S0028; U0003; U0005

== ENCOUNTER 2020-07-07 20:20 | Inpatient (IN) | payer MEDICARE, MEDICAID ==
[2020-07-07] MEDS ORDERED: methylPREDNISolone Sod Succ/PF 125 MG/2 ML VIAL ONE (20:55)
[2020-07-07] MEDS ORDERED: diphenhydrAMINE 50 MG/ML VIAL ONE (20:55)
[2020-07-07] MEDS ORDERED: Famotidine/PF 20 mg/2ml Vial ONE (20:55)
[2020-07-07] MEDS ORDERED: Ondansetron PF 4 MG/2 ML Vial ONE (20:55)
[2020-07-07] MEDS ORDERED: EPINEPHrine 1 MG/ML VIAL ONE (20:58)
[2020-07-07 21:20] LABS: Hemoglobin 11.4 g/dL (12.0-16.0); Mean Corpuscular HGB CONC 32.9 g/dL (32.0-36.0); Mean Corpuscular Hemoglobin 33.3 pg (27.0-31.0); Mean Platelet Volume 7.8 fL (7.4-10.4); Platelet Count 401 thou/uL (130-400); RBC Distribution Width 11.6 % (11.5-14.5); Red Blood Cell (RBC) Count 3.43 mill/uL (4.20-5.40)
[2020-07-07 21:28] LABS: PTT 30.2 sec (22.9-36.1); Prothrombin Time 13.7 sec (12.0-14.7)
[2020-07-07 21:32] LABS: Lymphocytes 3 % (21-51); MDiff Complete? YES; Monocytes 1 % (0-10); Neutrophil 96 % (42-75); Platelet Morphology Comment Appears Adequate
[2020-07-07 21:53] LABS: ALT (SGPT) 15 U/L (8-55); AST (SGOT) 18 U/L (5-34); Albumin 3.1 g/dL (3.5-5.0); Alkaline Phosphatase 88 U/L (40-110); Anion Gap 18 mmol/L (10-20); BUN (Urea Nitrogen) 28 mg/dL (7.0-18.7); Bilirubin, Total 0.6 mg/dL (0.2-1.2); Calc. Creatinine Clearance 0 mL/min (70-130); Calcium 8.4 mg/dL (7.8-10.44); Carbon Dioxide 15 mmol/L (22-29); Chloride 105 mmol/L (98-107); Globulin 3.4 g/dL (2.4-3.5); Glucose 98 mg/dL (70-105); Magnesium 1.9 mg/dL (1.6-2.6); Potassium 4.6 mmol/L (3.5-5.1); Protein, Total 6.5 g/dL (6.0-8.3); Sodium 133 mmol/L (136-145)
[2020-07-07 21:57] LABS: CKMB 1.1 ng/mL (0-6.6)
[2020-07-07 22:23] LABS: Lipase 6 U/L (8-78)
[2020-07-07 23:03] LABS: BHCG - Serum Negative (NEGATIVE); Pregs Control Background? CLEAR/WHITE (CLR/WHITE); Pregs Control Bar Appear? YES (CONTROL BAR)
[2020-07-08] MEDS ORDERED: diphenhydrAMINE 50 MG/ML VIAL IVP PRN (01:31)
[2020-07-08 01:43] LABS: Troponin I 0.124 ng/mL (< 0.028)
[2020-07-08 02:02] VITALS: BMI 31.1
[2020-07-08] MEDS ORDERED: EPINEPHrine 1 mg/ml MDV (1ml Charge) IM PRN (04:31)
[2020-07-08] MEDS ORDERED: Albuterol Sulfate 2.5 mg/3 ml Neb NEB PRN (04:32)
[2020-07-08] MEDS ORDERED: Sodium Chloride 0.9% 1,000 ML IV SCH (04:45)
[2020-07-08 05:01] LABS: SARS-CoV-2 NAA Rapid Test Not Detected (NotDetected)
[2020-07-08 05:05] LABS: Hemoglobin 10.5 g/dL (12.0-16.0); Mean Corpuscular Hemoglobin 33.4 pg (27.0-31.0); RBC Distribution Width 11.6 % (11.5-14.5); Red Blood Cell (RBC) Count 3.14 mill/uL (4.20-5.40)
[2020-07-08 05:20] LABS: Band 1 % (5-11); Eosinophils 2 % (0-10); MDiff Complete? YES; Mean Platelet Volume 8.1 fL (7.4-10.4); Monocytes 1 % (0-10); Neutrophil 96 % (42-75); Platelet Count 380 thou/uL (130-400); Platelet Morphology Comment Appears Adequate; White Blood Cell (WBC) Count 36.7 thou/uL (4.8-10.8)
[2020-07-08 05:34] LABS: Troponin I 0.126 ng/mL (< 0.028)
[2020-07-08 05:45] LABS: BUN (Urea Nitrogen) 32 mg/dL (7.0-18.7); Calc. Creatinine Clearance 33 mL/min (70-130); Carbon Dioxide 17 mmol/L (22-29); Glucose 161 mg/dL (70-105)
[2020-07-08 05:55] LABS: Anion Gap 16 mmol/L (10-20); Chloride 107 mmol/L (98-107); Potassium 4.4 mmol/L (3.5-5.1); Sodium 134 mmol/L (136-145)
[2020-07-08] MEDS ORDERED: predniSONE 20 MG TAB PO SCH (08:00)
[2020-07-08] MEDS ORDERED: Aspirin Chewable 81 MG TAB PO SCH (09:00)
[2020-07-08] MEDS: Famotidine 20 MG TAB PO SCH (09:06)
[2020-07-08] MEDS: Ezetimibe 10 MG TAB PO SCH (09:06)
[2020-07-08] MEDS: methylPREDNISolone Sod Succ 40 MG VIAL IVP SCH ×2 (09:06→21:27)
[2020-07-08 14:05] LABS: Bacteria/HPF 4+ HPF (None Seen); Bilirubin Negative (Negative); Blood, Urine 1+ (Negative); Clarity Extra Turbid (Clear); Glucose, Urine (Dipstick) Normal (Negative); Ketone, Urine Negative (Negative); Leukocyte 500 Leu/uL (Negative); Nitrite Negative (Negative); Protein, Urine (Dipstick) 30 mg/dL (Neg-Trace); Specific Gravity, Urine 1.017 (1.002-1.036); Urobilinogen Normal mg/dL (Less than 2); WBC/HPF Greater than 50 HPF (0-3); pH, Urine 5.5 (5.0-9.0)
[2020-07-08 14:06] LABS: Urine Culture Reflex No No
[2020-07-08] MEDS: diphenhydrAMINE 25 MG CAP PO SCH ×2 (15:48→21:26)
[2020-07-08] MEDS: Sodium Chloride 0.9% 1,000 ML IV SCH ×2 (15:48→21:50)
[2020-07-08] MEDS: Acetaminophen 325 MG TAB PO PRN (18:07)
[2020-07-09] MEDS: Sodium Chloride 0.9% 1,000 ML IV SCH ×2 (00:30→11:30)
[2020-07-09] MEDS ORDERED: diphenhydrAMINE 50 MG CAP PO SCH (01:30)
[2020-07-09 08:19] LABS: Anion Gap 15 mmol/L (10-20); BUN (Urea Nitrogen) 26 mg/dL (7.0-18.7); Calc. Creatinine Clearance 45 mL/min (70-130); Calcium 8.3 mg/dL (7.8-10.44); Carbon Dioxide 17 mmol/L (22-29); Chloride 111 mmol/L (98-107); Glucose 127 mg/dL (70-105); Potassium 3.9 mmol/L (3.5-5.1); Sodium 139 mmol/L (136-145)
[2020-07-09] MEDS: Ezetimibe 10 MG TAB PO SCH (08:24)
[2020-07-09] MEDS: Enoxaparin Sodium 30 MG/0.3 ML SYRINGE SC SCH (08:24)
[2020-07-09] MEDS: Famotidine 20 MG TAB PO SCH (08:24)
[2020-07-09] MEDS: Aspirin Chewable 81 MG TAB PO SCH (08:24)
[2020-07-09] MEDS: diphenhydrAMINE 25 MG CAP PO SCH ×2 (08:24→15:03)
[2020-07-09] MEDS: methylPREDNISolone Sod Succ 40 MG VIAL IVP SCH (08:25)
[2020-07-09 08:29] LABS: Hemoglobin 10.1 g/dL (12.0-16.0); Mean Corpuscular HGB CONC 31.8 g/dL (32.0-36.0); Mean Corpuscular Hemoglobin 32.7 pg (27.0-31.0); Mean Platelet Volume 8.1 fL (7.4-10.4); Platelet Count 432 thou/uL (130-400); RBC Distribution Width 11.7 % (11.5-14.5); Red Blood Cell (RBC) Count 3.09 mill/uL (4.20-5.40); White Blood Cell (WBC) Count 47.5 thou/uL (4.8-10.8)
[2020-07-09 09:54] LABS: Band 29 % (5-11); Eosinophils 2 % (0-10); Lymphocytes 3 % (21-51); MDiff Complete? YES; Monocytes 2 % (0-10); Neutrophil 62 % (42-75); Platelet Morphology Comment Appears Increased; Polychromasia SLIGHT = 2-3 cells (100X) (0-2/hpf); Vacuoles SLIGHT
[2020-07-09] MEDS: Acetaminophen 325 MG TAB PO PRN (17:35)
[2020-07-09] MEDS: hydrOXYzine 25 MG TAB PO PRN (20:37)
[2020-07-09] MEDS ORDERED: diphenhydrAMINE 25 MG CAP PO PRN (23:59)
[2020-07-10] MEDS: Sodium Chloride 0.9% 1,000 ML IV SCH ×2 (00:07→07:30)
[2020-07-10 04:32] LABS: Hemoglobin 9.8 g/dL (12.0-16.0); Mean Corpuscular Hemoglobin 32.6 pg (27.0-31.0); Mean Platelet Volume 7.7 fL (7.4-10.4); Platelet Count 423 thou/uL (130-400); RBC Distribution Width 11.9 % (11.5-14.5); Red Blood Cell (RBC) Count 3.02 mill/uL (4.20-5.40); White Blood Cell (WBC) Count 40.9 thou/uL (4.8-10.8)
[2020-07-10 04:50] LABS: Anion Gap 14 mmol/L (10-20); BUN (Urea Nitrogen) 22 mg/dL (7.0-18.7); Calc. Creatinine Clearance 57 mL/min (70-130); Calcium 8.1 mg/dL (7.8-10.44); Carbon Dioxide 18 mmol/L (22-29); Chloride 111 mmol/L (98-107); Glucose 89 mg/dL (70-105); Potassium 3.7 mmol/L (3.5-5.1); Sodium 139 mmol/L (136-145)
[2020-07-10 05:00] LABS: Band 18 % (5-11); Eosinophils 5 % (0-10); Hypochromia SLIGHT = 6-15 cells (100X) (0-5/hpf); Lymphocytes 9 % (21-51); MDiff Complete? YES; Monocytes 7 % (0-10); Neutrophil 61 % (42-75); Platelet Morphology Comment Appears Increased
[2020-07-10] MEDS: Acetaminophen 325 MG TAB PO PRN (05:21)
[2020-07-10] MEDS: predniSONE 20 MG TAB PO SCH (07:19)
[2020-07-10] MEDS: hydrOXYzine 25 MG TAB PO PRN ×2 (07:19→17:14)
[2020-07-10] MEDS: Famotidine 20 MG TAB PO SCH (08:51)
[2020-07-10] MEDS: Amlodipine 10 MG TAB PO SCH (08:52)
[2020-07-10] MEDS: Aspirin Chewable 81 MG TAB PO SCH (08:52)
[2020-07-10] MEDS: Ezetimibe 10 MG TAB PO SCH (08:53)
[2020-07-10] MEDS: Enoxaparin Sodium 30 MG/0.3 ML SYRINGE SC SCH (08:53)
[2020-07-10 11:33] LABS: ANA Symphony (Qualitative) Negative (Negative); ANA Symphony (Quantitative) 0.1 Ratio (< 0.7 Negative); dsDNA IgG Antibody Less than 0.5 IU/mL (<10 Negative)
[2020-07-11 04:56] LABS: Anion Gap 16 mmol/L (10-20); BUN (Urea Nitrogen) 15 mg/dL (7.0-18.7); Calc. Creatinine Clearance 61 mL/min (70-130); Carbon Dioxide 16 mmol/L (22-29); Chloride 110 mmol/L (98-107); Glucose 87 mg/dL (70-105); Potassium 3.7 mmol/L (3.5-5.1); Sodium 138 mmol/L (136-145)
[2020-07-11 05:09] LABS: Hemoglobin 11.1 g/dL (12.0-16.0); Mean Corpuscular Hemoglobin 33.9 pg (27.0-31.0); Mean Platelet Volume 8.1 fL (7.4-10.4); Platelet Count 504 thou/uL (130-400); RBC Distribution Width 11.9 % (11.5-14.5); Red Blood Cell (RBC) Count 3.26 mill/uL (4.20-5.40)
[2020-07-11 05:18] LABS: Eosinophils 11 % (0-10); Lymphocytes 12 % (21-51); MDiff Complete? YES; Metamyelocyte 1 % (0-0); Monocytes 3 % (0-10); Neutrophil 73 % (42-75); Platelet Morphology Comment Appears Increased; White Blood Cell (WBC) Count 35.1 thou/uL (4.8-10.8)
[2020-07-11] MEDS: Aspirin Chewable 81 MG TAB PO SCH (08:20)
[2020-07-11] MEDS: Amlodipine 10 MG TAB PO SCH (08:21)
[2020-07-11] MEDS: Enoxaparin Sodium 30 MG/0.3 ML SYRINGE SC SCH (08:21)
[2020-07-11] MEDS: Famotidine 20 MG TAB PO SCH (08:21)
[2020-07-11] MEDS: Ezetimibe 10 MG TAB PO SCH (08:21)
[2020-07-11] MEDS: predniSONE 20 MG TAB PO SCH (08:21)
[2020-07-11] MEDS ORDERED: Metoprolol Tartrate 25 MG TAB PO SCH (09:00)
[2020-07-11] MEDS ORDERED: Furosemide 20 MG TAB PO SCH (09:00)
[2020-07-11 11:51] VITALS: BP 108/60; TEMP 96.3
[2020-07-11] MEDS ORDERED: Atorvastatin Calcium 20 MG TAB PO SCH (21:00)
== END 2020-07-11 14:20 | disposition home or self-care (01) | DRG 683 ==
LOC: ERS 20:20 → 2NO 07-08 00:12
PROVIDERS: ADMIT Internal Medicine; ATTEND Internal Medicine
DX: N17.9 Acute kidney failure, unspecified (principal); T88.6XXA Anaphylactic reaction due to adverse effect of correct drug or medicament properly administered, initial encounter; N39.0 Urinary tract infection, site not specified; E87.2 Acidosis; I69.351 Hemiplegia and hemiparesis following cerebral infarction affecting right dominant side; Z23 Encounter for immunization; Z20.822 Contact with and (suspected) exposure to COVID-19; T50.2X5A Adverse effect of carbonic-anhydrase inhibitors, benzothiadiazides and other diuretics, initial encounter; E78.5 Hyperlipidemia, unspecified; B96.20 Unspecified Escherichia coli [E. coli] as the cause of diseases classified elsewhere; H54.40 Blindness, one eye, unspecified eye; I25.10 Atherosclerotic heart disease of native coronary artery without angina pectoris; D63.1 Anemia in chronic kidney disease; I12.9 Hypertensive chronic kidney disease with stage 1 through stage 4 chronic kidney disease, or unspecified chronic kidney disease; N18.30 Chronic kidney disease, stage 3 unspecified; E86.9 Volume depletion, unspecified; D72.823 Leukemoid reaction; L27.0 Generalized skin eruption due to drugs and medicaments taken internally; Z90.49 Acquired absence of other specified parts of digestive tract; Z82.49 Family history of ischemic heart disease and other diseases of the circulatory system; Z83.3 Family history of diabetes mellitus; Z83.49 Family history of other endocrine, nutritional and metabolic diseases; Z95.1 Presence of aortocoronary bypass graft; Z79.899 Other long term (current) drug therapy; Z88.5 Allergy status to narcotic agent; Z88.0 Allergy status to penicillin; Z79.82 Long term (current) use of aspirin; R77.8 Other specified abnormalities of plasma proteins
CPT/HCPCS: 36415; 36416; 71045; 80048; 80053; 81001; 82553; 83690; 83735; 83880; 84484; 84703; 85025; 85610; 85730; 86038; 86225; 87040; 87077; 87086; 87186; 90471; 90732; 93005; 96372; 96374; 96375; G0009; J0171; J1200; J1650; J1956; J2405; J2920; J2930; J7512; Q0163; S0028; U0002

== ENCOUNTER 2021-07-19 17:01 | Observation (INO) | payer MEDICARE, MEDICAID ==
[2021-07-19 18:46] VITALS: BMI 34.5
[2021-07-19] MEDS ORDERED: Ondansetron PF 4 MG/2 ML Vial IVP PRN (19:53)
[2021-07-19] MEDS ORDERED: Nitroglycerin 0.4 MG TAB (25 Tab Bottle) SL PRN (19:53)
[2021-07-19] MEDS ORDERED: Acetaminophen 325 MG TAB PO PRN (19:53)
[2021-07-19] MEDS ORDERED: EVOLOCUMAB 140 MG/ML SC SCH (20:00)
[2021-07-19 20:48] LABS: Troponin I 0.012 ng/mL (< 0.028)
[2021-07-19] MEDS: Heparin 5,000 UNITS/ML VIAL SC SCH (21:45)
[2021-07-19] MEDS: hydrALAZINE 25 MG TAB PO SCH (21:45)
[2021-07-19] MEDS: Amlodipine 10 MG TAB PO SCH (21:45)
[2021-07-19 23:34] LABS: Troponin I 0.013 ng/mL (< 0.028)
[2021-07-20 00:12] LABS: SARS-CoV-2 PCR by NAA Not Detected (NotDetected)
[2021-07-20 05:28] LABS: #Basophils 0.1 thou/uL (0.0-0.2); #Eosinphils 0.5 thou/uL (0.0-0.7); #Lymphocytes 3.9 thou/uL (1.20-3.40); #Monocytes 0.8 thou/uL (0.11-0.59); #Neutrophils 6.7 thou/uL (1.40-6.50); %Basophils 0.7 % (0.0-1.0); %Eosinophils 4.4 % (0.0-10.0); %Lymphocytes 32.6 % (21.0-51.0); %Neutrophils 55.4 % (42.0-75.0); Hemoglobin 12.4 g/dL (12.0-16.0); Mean Corpuscular HGB CONC 32.4 g/dL (32.0-36.0); Mean Corpuscular Hemoglobin 32.5 pg (27.0-31.0); Mean Platelet Volume 8.8 fL (7.4-10.4); Platelet Count 242 thou/uL (130-400); RBC Distribution Width 12.9 % (11.5-14.5); Red Blood Cell (RBC) Count 3.82 mill/uL (4.20-5.40); White Blood Cell (WBC) Count 12.1 thou/uL (4.8-10.8)
[2021-07-20 05:51] LABS: Anion Gap 12 mmol/L (10-20); BUN (Urea Nitrogen) 23 mg/dL (7.0-18.7); Calc. Creatinine Clearance 73 mL/min (70-130); Calcium 8.9 mg/dL (7.8-10.44); Carbon Dioxide 22 mmol/L (22-29); Chloride 109 mmol/L (98-107); Glucose 76 mg/dL (70-105); Potassium 3.7 mmol/L (3.5-5.1); Sodium 139 mmol/L (136-145)
[2021-07-20] MEDS: Heparin 5,000 UNITS/ML VIAL SC SCH ×3 (08:59→21:21)
[2021-07-20] MEDS: hydrALAZINE 25 MG TAB PO SCH ×3 (09:00→21:18)
[2021-07-20] MEDS: Aspirin 81 mg Enteric Coated Tablet PO SCH (09:00)
[2021-07-20] MEDS: Amlodipine 10 MG TAB PO SCH (21:18)
[2021-07-20] MEDS: Metoprolol Tartrate 100 MG TAB PO SCH (23:16)
[2021-07-21] MEDS: hydrALAZINE 25 MG TAB PO SCH ×2 (07:54→15:15)
[2021-07-21] MEDS: Heparin 5,000 UNITS/ML VIAL SC SCH ×2 (07:54→15:15)
[2021-07-21] MEDS: Aspirin 81 mg Enteric Coated Tablet PO SCH (07:55)
[2021-07-21] MEDS: Metoprolol Tartrate 100 MG TAB PO SCH (07:55)
[2021-07-21 11:29] VITALS: BP 116/69; TEMP 97.7
== END 2021-07-21 15:15 | disposition home or self-care (01) ==
LOC: 2SW 18:41
PROVIDERS: ADMIT Internal Medicine; ATTEND Internal Medicine
DX: R07.89 Other chest pain (principal); I12.9 Hypertensive chronic kidney disease with stage 1 through stage 4 chronic kidney disease, or unspecified chronic kidney disease; N18.30 Chronic kidney disease, stage 3 unspecified; D63.1 Anemia in chronic kidney disease; E78.49 Other hyperlipidemia; I25.10 Atherosclerotic heart disease of native coronary artery without angina pectoris; I69.351 Hemiplegia and hemiparesis following cerebral infarction affecting right dominant side; F17.210 Nicotine dependence, cigarettes, uncomplicated; I08.1 Rheumatic disorders of both mitral and tricuspid valves; Z23 Encounter for immunization; Z79.899 Other long term (current) drug therapy; Z88.0 Allergy status to penicillin; Z88.5 Allergy status to narcotic agent; Z95.1 Presence of aortocoronary bypass graft; Z20.822 Contact with and (suspected) exposure to COVID-19
CPT/HCPCS: 80048; 84484 ×2; 85025; 90732; 93306; 94760 ×2; G0009; U0003; U0005; 36415; 90471; 96372; G0378; J1644

== ENCOUNTER 2024-01-22 17:58 | Emergency (ER) | payer MEDICARE, OTHER ==
[2024-01-22] MEDS ORDERED: Ketorolac Tromethamine 30 MG (1 mL) VIAL ONE (18:27)
[2024-01-22] MEDS ORDERED: Orphenadrine Citrate 100 MG ER.TAB ONE (18:28)
== END 2024-01-22 19:39 | disposition home or self-care (01) ==
LOC: ERS 17:58
DX: M25.562 Pain in left knee (principal); M54.50 Low back pain, unspecified; I25.10 Atherosclerotic heart disease of native coronary artery without angina pectoris; F17.290 Nicotine dependence, other tobacco product, uncomplicated; I10 Essential (primary) hypertension; Z86.73 Personal history of transient ischemic attack (TIA), and cerebral infarction without residual deficits; W01.0XXA Fall on same level from slipping, tripping and stumbling without subsequent striking against object, initial encounter
CPT/HCPCS: 72100; 73564; J1885; 96372; 99283